=== PATIENT | female | born 1950 | race African-American/Black ===

== ENCOUNTER → 2020-02-24 | Outpatient (CLI) | payer MEDICARE ==
[2020-02-24 15:38] LABS: Anisocytosis Slight; HCT 40.5 % (34.0-46.0); HGB 12.3 gm/dL (11.4-16.0); Hypochromasia Marked; MCH 24.6 pg (25.0-35.0); MCHC 30.4 g/dL (31.0-37.0); Platelet Count 245 k/uL (150-450); RBC 4.99 m/uL (3.80-5.40); WBC 15.6 k/uL (3.8-10.6)
[2020-02-24 15:45] LABS: Appearance,Urine Clear (Clear); Bilirubin,Urine Negative (Negative); Blood,Urine Negative (Negative); Color,Urine Yellow; Glucose,Urine (UA) Negative (Negative); Ketones,Urine Negative (Negative); Leukocyte Esterase,Urine Large (Negative); Mucus,Urine Occasional /hpf; Nitrite,Urine Negative (Negative); Protein,Urine Trace (Negative); RBC,Urine 2 /hpf (0-5); Specific Gravity,Urine 1.033 (1.001-1.035); Squamous Epithelial Cell,Urine <1 /hpf (0-4); Urobilinogen,Urine <2.0 mg/dL (<2.0); WBC,Urine 11 /hpf (0-5)
[2020-02-24 15:46] LABS: ALT 16 U/L (4-34); AST 22 U/L (14-36); African American GFR (CKD) >90 (>60 ml/min/1.73 sqM); Albumin 4.6 g/dL (3.5-5.0); Alkaline Phosphatase 168 U/L (38-126); Anion Gap 9 mmol/L; Blood Urea Nitrogen 22 mg/dL (7-17); Calcium 10.1 mg/dL (8.4-10.2); Carbon Dioxide 28 mmol/L (22-30); Chloride 107 mmol/L (98-107); Glucose 84 mg/dL (74-99); Non-African American GFR(CKD) >90 (>60 ml/min/1.73 sqM); Potassium 5.2 mmol/L (3.5-5.1); Sodium 144 mmol/L (137-145); Total Bilirubin 0.3 mg/dL (0.2-1.3); Total Protein 7.9 g/dL (6.3-8.2)
[2020-02-24 15:48] LABS: INR 0.9 (<1.2); Prothrombin Time 9.8 sec (9.0-12.0)
== END | disposition home or self-care (01) ==
LOC: LABPAT 12:59
PROVIDERS: ATTEND Orthopaedic Surgery
DX: Z01.818 Encounter for other preprocedural examination (principal); Z01.812 Encounter for preprocedural laboratory examination; Z51.81 Encounter for therapeutic drug level monitoring; M17.11 Unilateral primary osteoarthritis, right knee; Z79.01 Long term (current) use of anticoagulants
CPT/HCPCS: 36415; 80053; 81001; 85027; 85610; 85730; 87070; 93005

== ENCOUNTER → 2020-12-07 | Outpatient (CLI) | payer MEDICARE, OTHER ==
[2020-12-07 15:15] LABS: Anisocytosis Slight; HCT 29.8 % (34.0-46.0); HGB 9.3 gm/dL (11.4-16.0); Hypochromasia Moderate; MCH 24.7 pg (25.0-35.0); MCHC 31.1 g/dL (31.0-37.0); MCV 79.5 fL (80.0-100.0); Mean Platelet Volume 8.7; Platelet Count 259 k/uL (150-450); RBC 3.75 m/uL (3.80-5.40); RDW 16.2 % (11.5-15.5); WBC 9.6 k/uL (3.8-10.6)
[2020-12-07 15:20] LABS: ALT 12 U/L (4-34); AST 15 U/L (14-36); African American GFR (CKD) 86 (>60 ml/min/1.73 sqM); Albumin 4.3 g/dL (3.5-5.0); Alkaline Phosphatase 154 U/L (38-126); Anion Gap 10 mmol/L; Blood Urea Nitrogen 52 mg/dL (7-17); Calcium 9.6 mg/dL (8.4-10.2); Carbon Dioxide 25 mmol/L (22-30); Chloride 109 mmol/L (98-107); Glucose 100 mg/dL (74-99); Non-African American GFR(CKD) 75 (>60 ml/min/1.73 sqM); Potassium 4.4 mmol/L (3.5-5.1); Sodium 144 mmol/L (137-145); Total Bilirubin <0.1 mg/dL (0.2-1.3); Total Protein 7.2 g/dL (6.3-8.2)
[2020-12-07 15:26] LABS: Prothrombin Time 10.6 sec (9.0-12.0)
[2020-12-07 16:29] LABS: Partial Thromboplastin Time 21.8 sec (22.0-30.0)
== END | disposition home or self-care (01) ==
LOC: LABPAT 14:24
PROVIDERS: ATTEND Orthopaedic Surgery
DX: Z01.812 Encounter for preprocedural laboratory examination (principal); M17.11 Unilateral primary osteoarthritis, right knee; Z79.01 Long term (current) use of anticoagulants
CPT/HCPCS: 36415; 80053; 85027; 85610; 85730; 87070

== ENCOUNTER 2020-12-12 10:50 | Observation (INO) | payer MEDICARE ==
[2020-12-07 12:30] VITALS: BMI 34.2
[~2020-12-12 10:50] MED LIST: ONDANSETRON 4 MG/2 ML VIAL IVP PRN; ROPIVACAINE/EPI/CLONIDINE/KET 50 ML SYRINGE MISCELLANE PRN; TRANEXAMIC ACID 1,000 MG in SODIUM CHLORIDE 0.9% 100 ML IVPB PRN; VANCOMYCIN 1,250 MG in SODIUM CHLORIDE 0.9% 250 ML IVPB PRN
[2020-12-12] MEDS ORDERED: MIDAZOLAM 2 MG/2 ML VIAL IV PRN (11:01)
[2020-12-12 12:00] LABS: Glucose,Whole Blood 108 mg/dL (75-99)
[2020-12-12] MEDS: MELOXICAM 7.5 MG TAB PO PRN ×2 (12:08→12:16)
[2020-12-12] MEDS: ACETAMINOPHEN TAB 500 MG TAB PO PRN ×2 (12:08→12:16)
[2020-12-12] MEDS ORDERED: DEXAMETHASONE SOD PHOSPHATE 4 MG/ML 1 ML VIAL IVP ONE (12:10)
[2020-12-12] MEDS: LACTATED RINGERS 1,000 ML IV SCH ×3 (12:15→17:26)
[2020-12-12] MEDS ORDERED: fentaNYL (PF) 50 MCG/ML 2 ML AMP IVP ONE (12:20)
[2020-12-12] MEDS ORDERED: MIDAZOLAM 2 MG/2 ML VIAL IVP ONE (12:20)
[2020-12-12] MEDS ORDERED: MIDAZOLAM 2 MG/2 ML VIAL ONE (12:44)
[2020-12-12] MEDS ORDERED: SODIUM CHLORIDE 0.9% 100 ML BAG ONE (12:44)
[2020-12-12] MEDS ORDERED: ROPIVACAINE 5 MG/ML 30 ML VIAL ONE (12:44)
[2020-12-12] MEDS ORDERED: SODIUM CHLORIDE 0.9% (PF) 10 ML VIAL ONE (12:44)
[2020-12-12] MEDS ORDERED: fentaNYL (PF) 50 MCG/ML 2 ML AMP ONE (12:44)
[2020-12-12] MEDS ORDERED: TRANEXAMIC ACID 1,000 MG/10 ML VIAL ONE (12:44)
[2020-12-12] MEDS ORDERED: PROPOFOL 10 MG/ML 20 ML VIAL IV ONE (12:44)
[2020-12-12] MEDS ORDERED: SODIUM CHLORIDE 0.9% 50 ML with ceFAZolin 2,000 MG IV ONE ×2 (12:47)
--- NOTE | 2020-12-12 13:37 | P.ANPRN ---
Procedure Note - Anesthesia - Nerve Block Performed Right Adductor Canal Infusion Time Out Performed: Yes (1218) Date of Procedure: 12/12/20 Procedure Start Time: 12:20 Procedure Stop Time: 12:26 Location of Patient: PreOp Indication: Acute Post-Operative Pain, Requested by Surgeon Specifically requested for management of pain by DrJose Angel: Dheeraj Gilliland Sedation Type: Sedate with meaningful contact maintained Preparation: Sterile Prep, Sterile Dressing Position: Supine Catheter Depth at Skin (cm): 9 Catheter: Indwelling Needle Types: Pajunk Needle Gauge: 21 Ultrasound used to visualize needle placement: Yes Ultrasound used to observe medication spread: Yes Injectate: 0.5% Ropivacaine (see comment for volume) (15cc + 5cc NACL) Blood Aspirated: No Pain Paresthesia on Injection Noted: No Resistance on Injection: Normal Image Stored and Saved: Yes Events: Uneventful and Well Tolerated Right iPack Single Time Out Performed: Yes (1218) Date of Procedure: 12/12/20 Procedure Start Time: 12:27 Procedure Stop Time: 12:31 Location of Patient: PreOp Indication: Acute Post-Operative Pain, Requested by Surgeon Specifically requested for management of pain by DrJose Angel: Dheeraj Gilliland Sedation Type: Sedate with meaningful contact maintained Preparation: Sterile Prep Position: Supine Catheter: None Needle Types: Pajunk Needle Gauge: 21 Ultrasound used to visualize needle placement: Yes Ultrasound used to observe medication spread: Yes Injectate: 0.5% Ropivacaine (see comment for volume) (15cc + 5cc NACL) Blood Aspirated: No Pain Paresthesia on Injection Noted: No Resistance on Injection: Normal Image Stored and Saved: Yes Events: Uneventful and Well Tolerated
[2020-12-12] MEDS ORDERED: hydrOXYzine pamoate 25 MG CAP PO PRN (14:38)
[2020-12-12] MEDS ORDERED: MAGNESIUM HYDROXIDE 2,400 MG/10 ML CUP PO PRN (14:38)
[2020-12-12] MEDS ORDERED: HYDROmorphone 0.2 MG/1 ML SYRINGE IVP PRN (14:38)
[2020-12-12] MEDS ORDERED: HYDROmorphone 0.5 MG/0.5 ML SYRINGE IVP PRN (14:38)
[2020-12-12] MEDS ORDERED: ONDANSETRON 4 MG/2 ML VIAL IVP PRN (14:38)
[2020-12-12] MEDS ORDERED: NALOXONE 0.4 MG/ML 1 ML VIAL IV PRN (14:38)
[2020-12-12] MEDS: ROPIVACAINE 0.2%-NS ON-Q PUMP 1,090 MG, EMPTY PAIN BALL 1 EACH MISCELLANE PRN ×2 (15:02→18:34)
--- NOTE | 2020-12-12 15:43 | XR ---
EXAMINATION TYPE: XR knee limited RT DATE OF EXAM: 12/12/2020 COMPARISON: NONE TECHNIQUE: Two views submitted HISTORY: Post op FINDINGS: There is a prosthetic knee in near anatomic alignment. There is soft tissue edema and emphysema. IMPRESSION: 1. Postoperative change. Appears in near-anatomic alignment
[2020-12-12] MEDS: HYDROmorphone 0.5 MG/0.5 ML SYRINGE IVP PRN ×4 (15:48→19:33)
[2020-12-12] MEDS ORDERED: LACTATED RINGERS 1,000 ML IV ONE ×2 (16:23)
--- NOTE | 2020-12-12 17:17 | P.OP ---
Date of Procedure: 12/12/20 Procedure(s) Performed: PREOPERATIVE DIAGNOSIS: Right knee severe osteoarthritis with genu varum POSTOPERATIVE DIAGNOSIS: Right knee severe osteoarthritis with genu varum OPERATION: Right knee cemented total replacement arthroplasty. ANESTHESIA: Spinal and regional ESTIMATED BLOOD LOSS: 100 ml. EGG TRAYER: Nikkie Martinez PA-C (assistance with: patient positioning, retraction, exposure, hemostasis, leg positioning, implantation, irrigation, closure, dressing) COMPLICATIONS: None apparent. COMPONENTS IMPLANTED: Journey II BCS total knee system from [employer] [facility] INDICATIONS: Roxanne is a 70 year old female with a history of right knee osteoarthritis. The patient's knee is end-stage, and conservative management has failed. The operation of knee replacement has been discussed at length in the office, as well as potential risks and complications. These are inclusive o f, but not limited to: bleeding, infection, scarring, discomfort, blood vessel and nerve damage, need for further surgery, failure to relieve symptoms, persistence, recurrence, or worsening of problems, loosening, dislocation, wear, blood clot, pulmonary embolism, , gait dysfunction, stiffness, and other risks as discussed in the office. The patient elects to proceed and the consent form has been signed. PROCEDURE: The patient was taken to the operating room and positioned on the operating room table in the supine position. Anesthesia was initiated. Care was taken to make sure that all pressure points were adequately padded. The operative lower extremity was prepped and draped in the usual aseptic fashion using ChloraPrep. Ioban drape was used for the case and the patient received intravenous antibiotics within one hour of the incision. A pneumotourniquet and leg chopra were used for the case. Time-out was called confirming the patient's identity, side, procedure and administration of antibiotics (Vancomycin and Cefazolin) and tranexamic acid. The incision was then created midline directly over the right knee, carried down through skin and into the subcutaneous tissues and down to fascia. Full thickness subcutaneous medial flap was developed. Medial parapatellar arthrotomy was performed and the interior of the knee was inspected. There was end-stage osteoarthritis of the knee with a mild to moderate genu valgum type deformity. The fat pad was excised and proximal medial release on the tibia was completed using meticulous dissection and a curved osteotome. The anterior cruciate ligament was taken down. Note was made of significant attrition of the anterior and significant degenerative appearance of the cruciate ligaments. The exposure was excellent and hemostasis was regularly maintained with electrocautery. The knee was flexed 90 degrees and the patella was everted. The [employer] pre- made distal cutting block was attached and pinned into position. The planned cut was analyzed visually and with the alignment vishal and found to be satisfactory without the need for any adjustment. The oscillating saw was then used to make the distal femoral cut and make the alignment holes for the 5 in 1 block. This cut was confirmed to be flat with the flat end of an osteotome. The 5 in 1 block was then used to create the anterior posterior condylar resections and the chamfer cuts. The retractors were placed around the tibia and the tibial surface was addressed. The [employer] pre-made guide was placed onto the exposed tibial surface and pinned into position to lasha the rotational alignment. The alignment of the guide was checked for depth of plannned resection, slope, and varus valgus. Guide was confirmed to be in good position and the tibial cut was then created with protection of the posterior neurovascular structures and the collateral ligaments. The tibial cut surface was removed and sized. Spacer block technique was then used to confirm that the flexion and extension gaps were equal. Soft tissue releases and adjustment of the tibial and/or femoral cuts were made, as necessary, until the gaps were equal. This included release of the posterior cruciate ligament, which was excessively tight in this patient. The trial components were inserted. The tibial tray was allowed to self center and the patella was noted to track very well. The position of the tibial component was marked and noted to be nearly exactly aligned with the pre-drilled holes from the [employer] guide. The tibia was then finished for a stemmed tibial component. Patellar resurfacing was performed using a reamer. The size of the required patellar component was estimated and the patellar surface was then reamed down to a residual thickness which would recreate the [place] thickness with the component. The exact placement of the patellar component was adjusted for position based on preoperative x-rays and intraoperative findings. The limb was exsanguinated with an Esmarch bandage and the tourniquet was inflated to 350 mmHg. Trial components were removed and the cut surfaces of the bone were pulse lavaged thoroughly and dried. Cement was mixed on the back table and applied to the final components. Cement was then applied to the tibial surface and pressurized into the surface using finger pressurization technique. The tibial component was then applied and excess cement was removed after it was impacted securely and noted to be flush with the cut surface. In similar fashion, the cement was applied to the cut femoral surface, pressurized in using finger pressurization and the component was impacted into place. Excess cement was removed. The polyethylene spacer was then implanted and locked into position. The patellar component was then applied in similar technique and a patellar clamp was used to hold the patella in place as the cement hardened. Once the cement had fully hardened, the knee was reinspected. Any other cement extrusion was removed and final kinematic testing showed range of motion from 0 to 130 degrees with excellent stability, both medially and laterally and appropriate alignment of the leg. Patellar tracking was excellent. The knee was then thoroughly pulse lavaged with normal saline. The tourniquet was deflated and hemostasis was obtained with electrocautery and IV tranexamic acid, 1 g given at the start of the operation and 1 g at the start of closure. Closure was with #2 Ethibond in the fascia/capsule and supplemented with #2 Quill, 2-0 Vicryl suture was used for the subcutaneous tissues and 3-0 Quill for the skin. Dermabond/Steri-Strips were then applied. A lightly compressive dressing was applied using Webril and an Malachi wrap. The patient was then transferred to stretcher and taken to the recovery room in stable condition. Sponge and needle counts were correct.
[2020-12-12] MEDS: HYDROcodone/APAP 5-325MG 1 EACH TAB PO PRN ×2 (17:24→23:32)
[2020-12-12] MEDS ORDERED: ALBUTEROL NEBULIZED 2.5 MG/3 ML INHALATION PRN (20:38)
[2020-12-12] MEDS: ASPIRIN 81 MG PO SCH (21:56)
[2020-12-12] MEDS: METOPROLOL TARTRATE 25 MG TAB PO SCH (21:56)
[2020-12-12] MEDS: SENNOSIDES-DOCUSATE SODIUM 1 EACH TAB PO SCH (21:56)
[2020-12-12] MEDS ORDERED: TEMAZEPAM 15 MG CAP PO PRN (22:00)
[2020-12-13] MEDS: HYDROmorphone 0.5 MG/0.5 ML SYRINGE IVP PRN ×2 (00:52→03:28)
[2020-12-13] MEDS: LACTATED RINGERS 1,000 ML IV SCH ×3 (00:53→12:57)
[2020-12-13] MEDS: HYDROcodone/APAP 5-325MG 1 EACH TAB PO PRN ×4 (05:37→23:57)
[2020-12-13 06:00] LABS: Anisocytosis Slight; Basophils % (A) 0 %; Eosinophils # (A) 0.1 k/uL (0-0.7); Eosinophils % (A) 1 %; HCT 28.9 % (34.0-46.0); HGB 9.1 gm/dL (11.4-16.0); Hypochromasia Slight; Lymphocytes # (A) 2.1 k/uL (1.0-4.8); Lymphocytes % (A) 19 %; MCH 25.3 pg (25.0-35.0); MCHC 31.5 g/dL (31.0-37.0); MCV 80.3 fL (80.0-100.0); Mean Platelet Volume 8.1; Monocytes # (A) 0.9 k/uL (0-1.0); Monocytes % (A) 8 %; Neutrophils # (A) 8.2 k/uL (1.3-7.7); Neutrophils % (A) 71 %; Platelet Count 225 k/uL (150-450); RDW 16.3 % (11.5-15.5); WBC 11.5 k/uL (3.8-10.6)
[2020-12-13] MEDS: ASPIRIN 81 MG PO SCH ×2 (08:18→20:25)
[2020-12-13] MEDS: METOPROLOL TARTRATE 25 MG TAB PO SCH ×2 (08:18→20:25)
[2020-12-13] MEDS: amLODIPine 5 MG TAB PO SCH (08:18)
[2020-12-13] MEDS: LISINOPRIL-HCTZ 10-12.5 MG 1 EACH TAB PO SCH (08:18)
[2020-12-13] MEDS: ASCORBIC ACID 500 MG TAB PO SCH (08:18)
[2020-12-13] MEDS: PHENYTOIN SODIUM EXTENDED 100 MG CAP PO SCH (08:19)
[2020-12-13] MEDS: MELOXICAM 7.5 MG TAB PO SCH (08:23)
--- NOTE | 2020-12-13 10:48 | P.PN ---
Progress Note - Text 12/13/20 646am 70-year-old female status post total knee replacement by Dr. Gilliland. Patient has an On-Q pump for postop pain control with solution running at 8 mL an hour with a VAS of 7. Dressing clean dry and intact. Patient just finished her physical therapy for the day as a result she is in the. We will continue the On-Q pump infusion at 8 mL an hour and it should provide pain relief
--- NOTE | 2020-12-13 11:33 | P.DS ---
Providers Date of admission: 12/13/20 10:50 Expected date of discharge: 12/13/20 Attending physician: Dheeraj Gilliland Consults: 12/12/20 14:38 Consult Physician Routine Consulting Provider: Morgan Truong Reason/Comments: Medical management Do you want consulting provider notified?: Yes Primary care physician: Benji Calhoun Kut - Discharge Diagnosis(es) (1) S/P total knee arthroplasty Current Visit: Yes Status: Acute (2) Osteoarthritis of right knee Current Visit: Yes Status: Acute Hospital Course: This is a 70-year-old female with known history of degenerative arthritis of the right knee. The patient presented for evaluation as an outpatient. After discussion and consideration patient elects to proceed with total knee arthroplasty. The patient is seen preoperatively by Dr. Gilliland and medically cleared for surgery by their primary care physician. Patient is admitted to [facility] on 12/12/2020 for total knee arthroplasty. The procedure is performed without complication or sequelae. The patient is doing well postoperatively. Labs and vital signs are stable on day of discharge. On day of discharge patient's knee incision is healing well. There is minimal erythema. There is no drainage noted at this time. There is minimal soft tissue swelling to the knee. Patient has full foot and ankle motion without difficulty or pain. Calf is soft and nontender to palpation. Neurovascular status to the right lower extremity is intact. Patient is discharged home in good condition. Please see med rec for accurate list of home medications. Plan - Discharge Summary Discharge Rx Participant: Yes New Discharge Prescriptions: New Sennosides-Docusate Sodium [Senokot-S] 1 tab PO BID #60 tablet Ondansetron Odt [Zofran Odt] 4 mg PO Q8HR PRN #14 tab PRN Reason: Nausea Aspirin [Adult Low Dose Aspirin EC] 81 mg PO BID #1 tablet. Meloxicam [Mobic] 1 - 2 tab PO DAILY PRN #60 tab PRN Reason: Pain Gabapentin [Neurontin] 300 mg PO BID 5 Days #10 cap HYDROcodone/APAP 7.5-325MG [[place] 7.5-325] 1 - 2 tab PO Q6HR PRN #32 tab PRN Reason: Pain Continue Vitamin B Complex 1 each PO DAILY Cholecalciferol [Vitamin D3 (25 Mcg = 1000 Iu)] 1,000 unit PO DAILY Albuterol Inhaler [Ventolin Hfa Inhaler] 2 puff INHALATION RT-QID PRN PRN Reason: Shortness Of Breath Phenytoin Sodium Extended [Dilantin] 300 mg PO DAILY amLODIPine [Norvasc] 5 mg PO DAILY Lisinopril-Hctz 10-12.5 mg [Zestoretic 10-12.5] 1 tab PO DAILY Ascorbic Acid [Vitamin C] 1,000 mg PO Q2D Metoprolol Tartrate [Lopressor] 25 mg PO BID Discontinued Ibuprofen [Motrin] 800 mg PO Q8H PRN PRN Reason: Pain, inflammation Aspirin 325 mg PO DAILY Discharge Medication List Albuterol Inhaler [Ventolin Hfa Inhaler] 2 puff INHALATION RT-QID PRN 03/02/20 [History] Cholecalciferol [Vitamin D3 (25 Mcg = 1000 Iu)] 1,000 unit PO DAILY 03/02/20 [History] Phenytoin Sodium Extended [Dilantin] 300 mg PO DAILY 03/02/20 [History] Vitamin B Complex 1 each PO DAILY 03/02/20 [History] amLODIPine [Norvasc] 5 mg PO DAILY 03/02/20 [History] Ascorbic Acid [Vitamin C] 1,000 mg PO Q2D 12/07/20 [History] Lisinopril-Hctz 10-12.5 mg [Zestoretic 10-12.5] 1 tab PO DAILY 12/07/20 [History] Metoprolol Tartrate [Lopressor] 25 mg PO BID 12/07/20 [History] Aspirin [Adult Low Dose Aspirin EC] 81 mg PO BID #1 tablet. 12/12/20 [Rx] Gabapentin [Neurontin] 300 mg PO BID 5 Days #10 cap 12/12/20 [Rx] HYDROcodone/APAP 7.5-325MG [[place] 7.5-325] 1 - 2 tab PO Q6HR PRN #32 tab 12/12/20 [Rx] Meloxicam [Mobic] 1 - 2 tab PO DAILY PRN #60 tab 12/12/20 [Rx] Ondansetron Odt [Zofran Odt] 4 mg PO Q8HR PRN #14 tab 12/12/20 [Rx] Sennosides-Docusate Sodium [Senokot-S] 1 tab PO BID #60 tablet 12/12/20 [Rx] Follow up Appointment(s)/Referral(s): Nikkie Martinez PAC [PHYSICIAN INGOT STRIPPER] - 2 Weeks Benji Light MD [Primary Care Provider] - 1 Week Activity/Diet/Wound Care/Special Instructions: May bear wt as tolerated w walker. May shower 48h post op. Keep Optifoam dressing intact 10 days.
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
[2020-12-13] MEDS: SENNOSIDES-DOCUSATE SODIUM 1 EACH TAB PO SCH (20:25)
[2020-12-14] MEDS: HYDROcodone/APAP 5-325MG 1 EACH TAB PO PRN ×3 (06:24→18:13)
[2020-12-14] MEDS: PHENYTOIN SODIUM EXTENDED 100 MG CAP PO SCH (07:54)
[2020-12-14] MEDS: METOPROLOL TARTRATE 25 MG TAB PO SCH ×2 (07:54→20:52)
[2020-12-14] MEDS: ASPIRIN 81 MG PO SCH ×2 (07:54→20:52)
[2020-12-14] MEDS: MELOXICAM 7.5 MG TAB PO SCH (07:55)
[2020-12-14] MEDS: amLODIPine 5 MG TAB PO SCH (07:55)
[2020-12-14] MEDS: LISINOPRIL-HCTZ 10-12.5 MG 1 EACH TAB PO SCH (07:56)
--- NOTE | 2020-12-14 09:42 | XR ---
EXAMINATION TYPE: XR chest 1V portable DATE OF EXAM: 12/14/2020 COMPARISON: 06/09/2013 HISTORY: Postop TECHNIQUE: Single frontal view of the chest is obtained. FINDINGS: There is no focal air space opacity, pleural effusion, or pneumothorax seen. The cardiac silhouette size is within normal limits. The osseous structures are intact. Degenerative change of the spine. Partial eventration right hemidiaphragm. No overt failure or pneumothorax. Diffuse osteope anne. Arthropathy of the shoulders. IMPRESSION: No acute process.
--- NOTE | 2020-12-14 10:13 | P.PN ---
Subjective Progress Note Date: 12/14/20 Principal diagnosis: Primary osteoarthritis right knee. Status post total right knee arthroplasty this is a 70-year-old female who is status post total right knee arthroplasty. She is postop day #2. She has some difficulty with activities and ambulation and is requesting transfer to inpatient rehab. She has no new complaints or concerns today. Vital signs and labs are stable. Objective - Vital Signs Vital signs: Vital Signs Temp 99.3 F 12/14/20 05:00 Pulse 115 H 12/14/20 05:00 Resp 16 12/14/20 05:00 BP 156/68 12/14/20 05:00 Pulse Ox 97 12/14/20 05:00 Intake & Output 12/13/20 12/14/20 12/14/20 18:59 06:59 18:59 Intake Total 540 Balance 540 Intake: Oral 540 Other: Voiding Method Bedside Commode Bedside Commode Toilet # Voids 2 3 1 - Exam this is a pleasant 70-year-old female in no acute distress. She is alert and oriented 3. Exam of the right knee reveals that the thigh-high JANICE hose is in place. There is no drainage noted through the dressing. She has full foot and ankle motion without difficulty or pain. Neurovascular status to the lower extremity is intact. - Labs CBC & Chem 7: 12/13/20 05:41 Assessment and Plan (1) Osteoarthritis of right knee Current Visit: Yes Status: Acute Code(s): M17.11 - UNILATERAL PRIMARY OSTEOARTHRITIS, RIGHT KNEE SNOMED Code(s): 344314200666130 (2) S/P total knee arthroplasty Current Visit: Yes Status: Acute Code(s): Z96.659 - PRESENCE OF UNSPECIFIED ARTIFICIAL KNEE JOINT SNOMED Code(s): 2767095337709 Plan: the clinical findings are discussed with the patient. She may be discharged to inpatient rehab when there is a bed available and prior authorization is complete.
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
[2020-12-14 12:21] LABS: Appearance,Urine Cloudy (Clear); Bacteria,Urine Rare /hpf; Bilirubin,Urine Negative (Negative); Blood,Urine Trace (Negative); Color,Urine Light Yellow; Glucose,Urine (UA) Negative (Negative); Ketones,Urine Negative (Negative); Leukocyte Esterase,Urine Large (Negative); Mucus,Urine Rare /hpf; Nitrite,Urine Negative (Negative); PH, Urine 5.5 (5.0-8.0); Protein,Urine Negative (Negative); RBC,Urine 9 /hpf (0-5); Squamous Epithelial Cell,Urine 1 /hpf (0-4); Urobilinogen,Urine <2.0 mg/dL (<2.0); WBC,Urine 153 /hpf (0-5)
[2020-12-14] MEDS: LACTATED RINGERS 1,000 ML IV SCH (12:36)
[2020-12-14] MEDS: CEPHALEXIN 250 MG CAP PO SCH ×2 (18:05→20:52)
[2020-12-14] MEDS: SENNOSIDES-DOCUSATE SODIUM 1 EACH TAB PO SCH (20:52)
[2020-12-15 06:40] LABS: Anisocytosis Slight; Basophils % (A) 0 %; Eosinophils # (A) 0.1 k/uL (0-0.7); Eosinophils % (A) 1 %; HCT 25.5 % (34.0-46.0); HGB 8.1 gm/dL (11.4-16.0); Hypochromasia Slight; Lymphocytes # (A) 1.7 k/uL (1.0-4.8); Lymphocytes % (A) 17 %; MCH 25.2 pg (25.0-35.0); MCHC 31.6 g/dL (31.0-37.0); MCV 79.5 fL (80.0-100.0); Mean Platelet Volume 9.9; Monocytes # (A) 0.8 k/uL (0-1.0); Monocytes % (A) 8 %; Neutrophils # (A) 6.9 k/uL (1.3-7.7); Neutrophils % (A) 71 %; Platelet Count 185 k/uL (150-450); RBC 3.21 m/uL (3.80-5.40); RDW 16.2 % (11.5-15.5); WBC 9.7 k/uL (3.8-10.6)
[2020-12-15] MEDS: LISINOPRIL-HCTZ 10-12.5 MG 1 EACH TAB PO SCH (08:38)
[2020-12-15] MEDS: PHENYTOIN SODIUM EXTENDED 100 MG CAP PO SCH (08:38)
[2020-12-15] MEDS: CEPHALEXIN 250 MG CAP PO SCH ×2 (08:38→21:10)
[2020-12-15] MEDS: METOPROLOL TARTRATE 25 MG TAB PO SCH ×2 (08:38→21:10)
[2020-12-15] MEDS: amLODIPine 5 MG TAB PO SCH (08:39)
[2020-12-15] MEDS: ASCORBIC ACID 500 MG TAB PO SCH (08:39)
[2020-12-15] MEDS: MELOXICAM 7.5 MG TAB PO SCH (08:39)
[2020-12-15] MEDS: ASPIRIN 81 MG PO SCH ×2 (08:39→21:10)
[2020-12-15] MEDS: HYDROcodone/APAP 5-325MG 1 EACH TAB PO PRN ×3 (08:40→21:10)
--- NOTE | 2020-12-15 08:54 | P.DS ---
Providers Date of admission: 12/13/20 10:50 Expected date of discharge: 12/15/20 Attending physician: Dheeraj Gilliland Consults: 12/12/20 14:38 Consult Physician Routine Consulting Provider: Morgan Truong Reason/Comments: Medical management Do you want consulting provider notified?: Yes Primary care physician: Benji Calhoun Kut - Discharge Diagnosis(es) (1) Osteoarthritis of right knee Current Visit: Yes Status: Acute (2) S/P total knee arthroplasty Current Visit: Yes Status: Acute Hospital Course: This is a 70-year-old female who was last seen with complaint of continued right knee pain. The patient has a known history of degenerative arthritis of the right knee and presents to discuss surgical options. After discussion and consideration the patient elects to proceed with total right knee arthroplasty. The patient is seen preoperatively by her primary care physician and cleared for surgery. The patient is admitted to [facility] for total right knee arthroplasty. The procedures performed without complication or sequelae. Patient is doing well postoperatively. Vital signs are stable at discharge. Labs are stable at discharge. the patient is ambulating well with walker with minimal assistance. The patient is discharged to home on postop day #3 pending medical clearance. Please see orders and refer to the med rec for accurate list of medications. Patient Condition at Discharge: Good Plan - Discharge Summary Discharge Rx Participant: Yes New Discharge Prescriptions: New Sennosides-Docusate Sodium [Senokot-S] 1 tab PO BID #60 tablet Ondansetron Odt [Zofran Odt] 4 mg PO Q8HR PRN #14 tab PRN Reason: Nausea Aspirin [Adult Low Dose Aspirin EC] 81 mg PO BID #1 tablet. Meloxicam [Mobic] 1 - 2 tab PO DAILY PRN #60 tab PRN Reason: Pain Gabapentin [Neurontin] 300 mg PO BID 5 Days #10 cap HYDROcodone/APAP 7.5-325MG [[place] 7.5-325] 1 - 2 tab PO Q6HR PRN #32 tab PRN Reason: Pain Continue Vitamin B Complex 1 each PO DAILY Cholecalciferol [Vitamin D3 (25 Mcg = 1000 Iu)] 1,000 unit PO DAILY Albuterol Inhaler [Ventolin Hfa Inhaler] 2 puff INHALATION RT-QID PRN PRN Reason: Shortness Of Breath Phenytoin Sodium Extended [Dilantin] 300 mg PO DAILY amLODIPine [Norvasc] 5 mg PO DAILY Lisinopril-Hctz 10-12.5 mg [Zestoretic 10-12.5] 1 tab PO DAILY Ascorbic Acid [Vitamin C] 1,000 mg PO Q2D Metoprolol Tartrate [Lopressor] 25 mg PO BID Discontinued Ibuprofen [Motrin] 800 mg PO Q8H PRN PRN Reason: Pain, inflammation Aspirin 325 mg PO DAILY Discharge Medication List Albuterol Inhaler [Ventolin Hfa Inhaler] 2 puff INHALATION RT-QID PRN 03/02/20 [History] Cholecalciferol [Vitamin D3 (25 Mcg = 1000 Iu)] 1,000 unit PO DAILY 03/02/20 [History] Phenytoin Sodium Extended [Dilantin] 300 mg PO DAILY 03/02/20 [History] Vitamin B Complex 1 each PO DAILY 03/02/20 [History] amLODIPine [Norvasc] 5 mg PO DAILY 03/02/20 [History] Ascorbic Acid [Vitamin C] 1,000 mg PO Q2D 12/07/20 [History] Lisinopril-Hctz 10-12.5 mg [Zestoretic 10-12.5] 1 tab PO DAILY 12/07/20 [History] Metoprolol Tartrate [Lopressor] 25 mg PO BID 12/07/20 [History] Aspirin [Adult Low Dose Aspirin EC] 81 mg PO BID #1 tablet. 12/12/20 [Rx] Gabapentin [Neurontin] 300 mg PO BID 5 Days #10 cap 12/12/20 [Rx] HYDROcodone/APAP 7.5-325MG [[place] 7.5-325] 1 - 2 tab PO Q6HR PRN #32 tab 12/12/20 [Rx] Meloxicam [Mobic] 1 - 2 tab PO DAILY PRN #60 tab 12/12/20 [Rx] Ondansetron Odt [Zofran Odt] 4 mg PO Q8HR PRN #14 tab 12/12/20 [Rx] Sennosides-Docusate Sodium [Senokot-S] 1 tab PO BID #60 tablet 12/12/20 [Rx] Follow up Appointment(s)/Referral(s): Nikkie Martinez, BETTYE [PHYSICIAN FLOAT NURSE] - 12/23/20 2:45 pm Benji Light MD [Primary Care Provider] - 1 Week Activity/Diet/Wound Care/Special Instructions: May bear wt as tolerated w walker. May shower 48h post op. Keep Optifoam dressing intact 10 days. Discharge Disposition: TRANSFER TO SNF/ECF
[2020-12-15] MEDS: LACTATED RINGERS 1,000 ML IV SCH (11:18)
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
[2020-12-15] MEDS: SENNOSIDES-DOCUSATE SODIUM 1 EACH TAB PO SCH (21:10)
[2020-12-16] MEDS: HYDROcodone/APAP 5-325MG 1 EACH TAB PO PRN ×3 (05:09→18:26)
[2020-12-16] MEDS: CEPHALEXIN 250 MG CAP PO SCH (08:00)
[2020-12-16] MEDS: amLODIPine 5 MG TAB PO SCH (08:00)
[2020-12-16] MEDS: ASPIRIN 81 MG PO SCH (08:00)
[2020-12-16] MEDS: METOPROLOL TARTRATE 25 MG TAB PO SCH (08:01)
[2020-12-16] MEDS: MELOXICAM 7.5 MG TAB PO SCH (08:01)
[2020-12-16] MEDS: PHENYTOIN SODIUM EXTENDED 100 MG CAP PO SCH (08:01)
[2020-12-16] MEDS: LISINOPRIL-HCTZ 10-12.5 MG 1 EACH TAB PO SCH (08:01)
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
[2020-12-16 13:11] VITALS: BP 121/60; PULSE 91; RESP 16; TEMP 98.5
[2020-12-16] MEDS: LACTATED RINGERS 1,000 ML IV SCH (15:03)
== END 2020-12-16 19:53 ==
LOC: OR 10:50 → 5NMEDONC 14:33 → OR 12-13 10:50 → 5NMEDONC 12-13 10:50
PROVIDERS: ADMIT Orthopaedic Surgery; ATTEND Orthopaedic Surgery
DX: M17.11 Unilateral primary osteoarthritis, right knee (principal); M21.161 Varus deformity, not elsewhere classified, right knee; I10 Essential (primary) hypertension; G40.909 Epilepsy, unspecified, not intractable, without status epilepticus; D64.9 Anemia, unspecified; M16.11 Unilateral primary osteoarthritis, right hip; L30.9 Dermatitis, unspecified; Z79.1 Long term (current) use of non-steroidal anti-inflammatories (NSAID); Z79.899 Other long term (current) drug therapy; Z88.1 Allergy status to other antibiotic agents; Z91.013 Allergy to seafood; Z86.12 Personal history of poliomyelitis; Z87.891 Personal history of nicotine dependence; Z90.711 Acquired absence of uterus with remaining cervical stump; Z87.81 Personal history of (healed) traumatic fracture; Z97.3 Presence of spectacles and contact lenses; Z98.890 Other specified postprocedural states; Z82.49 Family history of ischemic heart disease and other diseases of the circulatory system
CPT/HCPCS: 97116; 97110 ×2; 97530 ×3; 97162; 97535; 97166; 64999; 64448; 76942; 85025 ×2; 81001; 88300; 87086; 73560; 71045; 27447; G0378 ×4; C1713; C1776; J2250; J3370; J1100; J0690 ×2; J2405; J3010; J2795 ×2; J2704; J1170 ×2